=== PATIENT | female | born 1950 | race Caucasian/White ===

== ENCOUNTER 2019-04-01 07:51 | Day surgery (SDC) | payer OTHER, MEDICARE ==
[2019-04-01 08:36] VITALS: BMI 24.0
[2019-04-01 09:47] VITALS: TEMP 97.4
[2019-04-01 11:06] VITALS: BP 139/73; PULSE 65
--- NOTE | 2019-04-02 18:49 | PATH ---
Surgical Pathology Report Patient Name: BRADFORD RUGGIERO [facility]. Rec. #: [id number] /Age/Gender: 1950 (Age: 68) / F Account: [id number] Location: ASU-ENDOSCOPY Taken: 04/01/2019 Received: 04/01/2019 Reported: 04/02/2019 Physicians: RONNY HERNANDEZ Specimen(s) Received A: CECAL POLYP B: RIGHT COLON C: TRANSVERSE COLON POLYP D: TRANSVERSE COLON RANDOM E: AT 30CM F: AT 20CM G: AT 10CM H: RECTUM Clinical History History of ulcerative colitis Postoperative diagnosis: Diverticulosis Final Diagnosis A. CECAL POLYP, POLYPECTOMY: TUBULAR ADENOMA. B. RIGHT COLON, BIOPSY: COLONIC MUCOSA WITH MILD CRYPT ARCHITECTURAL DISTORTION. NO HISTOLOGIC EVIDENCE OF ACTIVE INFLAMMATION. C. TRANSVERSE COLON POLYP, POLYPECTOMY: TUBULAR ADENOMA. D. RANDOM TRANSVERSE COLON BIOPSY: COLONIC MUCOSA WITH REACTIVE LYMPHOID AGGREGATE AND MILD CRYPT ARCHITECTURAL DISTORTION. NO HISTOLOGIC EVIDENCE OF ACTIVE INFLAMMATION. E. BIOPSY AT 30 CM: COLONIC MUCOSA WITH MILD CRYPT ARCHITECTURAL DISTORTION. NO HISTOLOGIC EVIDENCE OF ACTIVE INFLAMMATION. F. BIOPSY AT 20 CM: COLONIC MUCOSA WITH MILD CRYPT ARCHITECTURAL DISTORTION AND REACTIVE LYMPHOID AGGREGATE. NO HISTOLOGIC EVIDENCE OF ACTIVE INFLAMMATION. G. BIOPSY AT 10 CM: COLONIC MUCOSA WITH MILD CRYPT ARCHITECTURAL DISTORTION AND REACTIVE LYMPHOID AGGREGATE. NO HISTOLOGIC EVIDENCE OF ACTIVE INFLAMMATION. H. RECTUM, BIOPSY: COLONIC MUCOSA WITH MILD CRYPT ARCHITECTURAL DISTORTION AND REACTIVE LYMPHOID AGGREGATE. NO HISTOLOGIC EVIDENCE OF ACTIVE INFLAMMATION. Electronically Signed Brody Carrasquillo M.D. Gross Description A. Received in formalin, labeled "biopsy cecal polyp" are 2 dubose, irregular portions of soft tissue measuring 0.1 and 0.3 cm. in greatest dimension. The specimens are submitted in toto in one cassette. B. Received in formalin, labeled "biopsy right colon" are 4 dubose, irregular portions of soft tissue ranging from 0.2-0.3 cm. in greatest dimension. The specimens are submitted in toto in one cassette. C. Received in formalin, labeled "biopsy transverse colon polyp" is a dubose, irregular portion of soft tissue measuring 0.3 cm. in greatest dimension. The specimen is submitted in toto in one cassette. D. Received in formalin, labeled "biopsy transverse colon random" are 2 dubose, irregular portions of soft tissue measuring 0.1 and 0.2 cm. in greatest dimension. The specimens are submitted in toto in one cassette. E. Received in formalin, labeled "biopsy at 30 cm" are 2 dubose, irregular portions of soft tissue averaging 0.4 cm. in greatest dimension. The specimens are submitted in toto in one cassette. F. Received in formalin, labeled "biopsy at 20 cm" are 2 dubose, irregular portions of soft tissue averaging 0.3 cm. in greatest dimension. The specimens are submitted in toto in one cassette. G. Received in formalin, labeled "biopsy at 10 cm" is a dubose, irregular portion of soft tissue measuring 0.5 cm. in greatest dimension. The specimen is submitted in toto in one cassette. H. Received in formalin, labeled "biopsy rectum" are 2 dubose, irregular portions of soft tissue measuring 0.2 and 0.3 cm. in greatest dimension. The specimens are submitted in toto in one cassette. 04/01/2019 [facility]04/01/2019
== END 2019-04-01 10:50 | disposition home or self-care (01) ==
LOC: JASU-ENDO 07:51
PROVIDERS: ATTEND Internal Medicine Gastroenterology
PROC: 0DBL8ZX Excision of Transverse Colon, Via Natural or Artificial Opening Endoscopic, Diagnostic (ICD-10-PCS; 2019-04-01)
PROC: 0DBH8ZX Excision of Cecum, Via Natural or Artificial Opening Endoscopic, Diagnostic (ICD-10-PCS; principal; 2019-04-01 09:00)
DX: D12.0 Benign neoplasm of cecum (principal); D12.3 Benign neoplasm of transverse colon; K57.30 Diverticulosis of large intestine without perforation or abscess without bleeding